=== PATIENT | female | born 1935 | race Caucasian/White ===

== ENCOUNTER 2019-04-13 19:12 | Inpatient (IN) ==
[2019-04-13 21:04] LABS: Hematocrit 36.2 % (35.3-44.9); Hemoglobin 12.2 g/dL (11.5-15.4); Mean Corpuscular HGB Conc 33.7 g/dL (31.6-35.5); Mean Corpuscular Hemoglobin 33.4 pg (28.0-33.3); Mean Corpuscular Volume 99.2 fL (83.0-100.0); Mean Platelet Volume 10.4 fL (9.4-12.4); Platelet Count 196 K/mcL (140-400); Red Blood Count 3.65 M/mcL (3.82-4.97); Red Cell Distribution Width 14.1 % (11.5-14.5); White Blood Count 5.1 K/mcL (4.3-11.1)
[2019-04-13 21:33] LABS: BUN/Creatinine Ratio 23 (6-26); Blood Urea Nitrogen 20 mg/dL (8-23); Calcium 8.9 mg/dL (8.6-10.3); Carbon Dioxide 28 mEq/L (23-29); Chloride 101 mEq/L (98-107); Glucose 116 mg/dL (70-105); Osmolality,Calculated 286 (280-300); Potassium 3.6 mEq/L (3.5-5.1); Sodium 136 mEq/L (136-145); eGFR For African Americans > 60 (> 60); eGFR For Non-African Americans > 60 (> 60)
[2019-04-14] MEDS ORDERED: Naloxone 0.4 MG/ML INJ IVP PRN (01:51)
[2019-04-14 02:09] LABS: Bilirubin,Urine Negative (Negative); Blood,Urine Negative (Negative); Clarity,Urine Cloudy (Clear); Color,Urine Yellow (Yellow); Glucose,Urine (UA) Normal (Normal); Ketones,Urine Negative (Negative); Leukocyte Esterase,Urine Moderate (Negative); Nitrite,Urine Negative (Negative); PH,Urine 7.5 pH Units (5.0-8.0); Protein,Urine Negative (Neg-Trace); Specific Gravity,Urine 1.013 (1.010-1.025); Urobilinogen,Urine Normal (Normal)
[2019-04-14 02:11] LABS: Bacteria,Urine Many per hpf (None-Few); Hyaline Casts,Urine None Seen per lpf (None-Few); Squamous Epithelial Cell,Urine Many per lpf (None-Few); WBC,Urine 50-100 per hpf (0-3)
[2019-04-14] MEDS: rOPINIRole 1 MG TABLET PO SCH ×2 (03:08→19:59)
[2019-04-14] MEDS ORDERED: Ibuprofen 800 MG TABLET PO PRN (03:48)
[2019-04-14 05:21] LABS: Hematocrit 33.1 % (35.3-44.9); Hemoglobin 11.4 g/dL (11.5-15.4); Mean Corpuscular HGB Conc 34.4 g/dL (31.6-35.5); Mean Corpuscular Hemoglobin 33.4 pg (28.0-33.3); Mean Corpuscular Volume 97.1 fL (83.0-100.0); Mean Platelet Volume 10.8 fL (9.4-12.4); Platelet Count 189 K/mcL (140-400); Red Blood Count 3.41 M/mcL (3.82-4.97)
[2019-04-14 05:32] LABS: White Blood Count 8.8 K/mcL (4.3-11.1)
[2019-04-14 05:38] LABS: Alanine Aminotransferase 18 Units/L (7-52); Albumin 4.1 g/dL (3.5-5.7); Alkaline Phosphatase 63 Units/L (34-104); Aspartate Amino Transferase 20 Units/L (13-39); BUN/Creatinine Ratio 22 (6-26); Bilirubin,Total 0.5 mg/dL (0.3-1.0); Blood Urea Nitrogen 15 mg/dL (8-23); Carbon Dioxide 26 mEq/L (23-29); Chloride 100 mEq/L (98-107); Globulin 2.1 g/dL (2.4-3.5); Glucose 96 mg/dL (70-105); Osmolality,Calculated 283 (280-300); Potassium 3.5 mEq/L (3.5-5.1); Sodium 136 mEq/L (136-145); Total Protein 6.2 g/dL (6.4-8.9); eGFR For African Americans > 60 (> 60); eGFR For Non-African Americans > 60 (> 60)
[2019-04-14 05:40] LABS: Phosphorous 3.5 mg/dL (2.7-4.5)
[2019-04-14] MEDS: predniSONE 10 MG TABLET PO SCH (08:54)
[2019-04-14] MEDS: cefTRIAXone 1,000 MG in Water for inj. (sterile) 10 ML IVP SCH (08:54)
[2019-04-14] MEDS: OXcarbazepine 150 MG TABLET PO SCH ×4 (10:40→19:59)
[2019-04-14] MEDS: amLODIPine 5 MG TABLET PO SCH (10:42)
[2019-04-14] MEDS: Melatonin 3 MG TABLET PO SCH (19:59)
[2019-04-14] MEDS: PROGESTERONE MICRONIZED 200 MG PO SCH (19:59)
[2019-04-15 07:44] LABS: Folate 14.3 ng/mL (3.0-16.0)
[2019-04-15] MEDS: predniSONE 10 MG TABLET PO SCH (11:06)
[2019-04-15] MEDS: cefTRIAXone 1,000 MG in Water for inj. (sterile) 10 ML IVP SCH (11:07)
[2019-04-15] MEDS: amLODIPine 5 MG TABLET PO SCH (11:16)
[2019-04-15] MEDS: OXcarbazepine 150 MG TABLET PO SCH ×4 (11:16→20:29)
[2019-04-15] MEDS: Metoprolol XL (24 HR) Succ 25 MG TAB.ER.24H PO SCH ×2 (13:47→13:52)
[2019-04-15] MEDS: Melatonin 3 MG TABLET PO SCH (20:28)
[2019-04-15] MEDS: rOPINIRole 1 MG TABLET PO SCH (20:29)
[2019-04-15] MEDS: PROGESTERONE MICRONIZED 200 MG PO SCH (20:31)
[2019-04-16 01:33] LABS: BUN/Creatinine Ratio 26 (6-26); Blood Urea Nitrogen 19 mg/dL (8-23); Calcium 9.1 mg/dL (8.6-10.3); Carbon Dioxide 24 mEq/L (23-29); Chloride 101 mEq/L (98-107); Glucose 92 mg/dL (70-105); Osmolality,Calculated 278 (280-300); Potassium 4.1 mEq/L (3.5-5.1); Sodium 133 mEq/L (136-145); eGFR For African Americans > 60 (> 60); eGFR For Non-African Americans > 60 (> 60)
[2019-04-16] MEDS: predniSONE 10 MG TABLET PO SCH (07:48)
[2019-04-16] MEDS: Metoprolol XL (24 HR) Succ 25 MG TAB.ER.24H PO SCH (07:48)
[2019-04-16] MEDS: OXcarbazepine 150 MG TABLET PO SCH ×2 (07:48→11:55)
[2019-04-16] MEDS: amLODIPine 5 MG TABLET PO SCH (07:48)
[2019-04-16] MEDS: cefTRIAXone 1,000 MG in Water for inj. (sterile) 10 ML IVP SCH (07:49)
[2019-04-16 10:45] LABS: Phenytoin (Dilantin) 1.1 mcg/mL (10.0-20.0)
[2019-04-16 11:12] VITALS: BP 154/71
[2019-04-18 02:45] LABS: Phenytoin (Dilantin) Free <0.5 ug/mL (1.0-2.5)
== END 2019-04-16 15:36 | disposition home or self-care (01) | DRG 92 ==
LOC: EMEROOARM 19:12 → 3BNU 19:12 → SUATTDRO 22:07 → 3BNU 22:20
PROVIDERS: ADMIT Internal Medicine; ATTEND Internal Medicine

== ENCOUNTER 2019-12-11 18:42 | Inpatient (IN) ==
[2019-12-11] MEDS ORDERED: Isovue-370 500 ML BOTTLE IVP ONE (19:41)
[2019-12-11 20:05] LABS: Alanine Aminotransferase 32 Units/L (7-52); Albumin 4.2 g/dL (3.5-5.7); Albumin/Globulin Ratio 1.8 (1.1-2.2); Alkaline Phosphatase 74 Units/L (34-104); Aspartate Amino Transferase 30 Units/L (13-39); BUN/Creatinine Ratio 22 (6-26); Bilirubin,Total 0.4 mg/dL (0.3-1.0); Blood Urea Nitrogen 19 mg/dL (8-23); Calcium 8.8 mg/dL (8.6-10.3); Carbon Dioxide 26 mEq/L (23-29); Chloride 97 mEq/L (98-107); Globulin 2.4 g/dL (2.4-3.5); Glucose 114 mg/dL (70-105); Osmolality,Calculated 279 (280-300); Potassium 3.5 mEq/L (3.5-5.1); Sodium 133 mEq/L (136-145); Total Protein 6.6 g/dL (6.4-8.9); Troponin I < 0.03 ng/mL (< 0.04); eGFR For African Americans > 60 (> 60); eGFR For Non-African Americans > 60 (> 60)
[2019-12-11 20:09] LABS: Bilirubin,Urine Negative (Negative); Blood,Urine Trace-intact (Negative); Clarity,Urine Cloudy (Clear); Color,Urine Yellow (Yellow); Glucose,Urine (UA) Normal (Normal); Ketones,Urine Negative (Negative); Leukocyte Esterase,Urine Small (Negative); Nitrite,Urine Negative (Negative); PH,Urine 7.5 pH Units (5.0-8.0); Protein,Urine >=300 mg/dL (Neg-Trace); Urobilinogen,Urine Normal (Normal)
[2019-12-11 20:13] LABS: Hemoglobin 12.2 g/dL (11.5-15.4); Immature Granulocytes % 0.5 % (0-4); Mean Corpuscular Hemoglobin 32.3 pg (28.0-33.3); Mean Corpuscular Volume 97.9 fL (83.0-100.0); Mean Platelet Volume 9.7 fL (9.4-12.4); Neutrophils # 4.7 K/mcL (1.6-8.9); Platelet Count 199 K/mcL (140-400); Red Blood Count 3.78 M/mcL (3.82-4.97); Red Cell Distribution Width 15.1 % (11.5-14.5); Segmented Neutrophils % 70.6 %; White Blood Count 6.6 K/mcL (4.3-11.1)
[2019-12-11 20:14] LABS: Basophils % 0.6 %; Eosinophils # 0.1 K/mcL (0.0-0.6); Eosinophils % 1.2 %; Lymphocytes % 15.3 %; Monocytes # 0.8 K/mcL (0.0-1.3); Monocytes % 11.8 %
[2019-12-11 20:48] LABS: Bacteria,Urine Many per hpf (None-Few); Squamous Epithelial Cell,Urine Few per lpf (None-Few)
[2019-12-11 20:49] LABS: WBC,Urine 15-30 per hpf (0-3)
[2019-12-11 20:50] LABS: Triple Phosphate Crystal,Urine Present
[2019-12-11] MEDS ORDERED: cefTRIAXone 1,000 MG in 0.9 % Sodium Chloride Mini Bag 100 ML IVPB ONE (21:47)
[2019-12-11] MEDS ORDERED: cefTRIAXone 1,000 MG in Water for inj. (sterile) 10 ML IVP ONE (22:15)
[2019-12-12] MEDS ORDERED: Acetaminophen 325 MG TABLET PO PRN (00:25)
[2019-12-12] MEDS ORDERED: *HR* Promethazine 25 MG/ML VIAL IVP PRN (00:25)
[2019-12-12] MEDS ORDERED: Naloxone 0.4 MG/ML INJ IVP PRN (00:25)
[2019-12-12] MEDS ORDERED: 0.9 % Sodium Chloride 1,000 ML IVC SCH (00:30)
[2019-12-12] MEDS ORDERED: *HR* Metoprolol 5 MG/5 ML VIAL IVP PRN (00:30)
[2019-12-12] MEDS ORDERED: rOPINIRole 1 MG TABLET PO ONE (04:21)
[2019-12-12] MEDS: *HR* Heparin 5,000 UNIT/ML VIAL SQ SCH ×3 (06:45→22:20)
[2019-12-12 07:15] LABS: Basophils % 0.4 %; Eosinophils % 0.4 %; Hematocrit 34.8 % (35.3-44.9); Hemoglobin 11.8 g/dL (11.5-15.4); Immature Granulocytes % 0.4 % (0-4); Lymphocytes # 0.6 K/mcL (0.6-4.6); Lymphocytes % 6.7 %; Mean Corpuscular HGB Conc 33.9 g/dL (31.6-35.5); Mean Corpuscular Hemoglobin 32.2 pg (28.0-33.3); Mean Corpuscular Volume 94.8 fL (83.0-100.0); Mean Platelet Volume 9.7 fL (9.4-12.4); Monocytes % 10.7 %; Neutrophils # 7.4 K/mcL (1.6-8.9); Platelet Count 194 K/mcL (140-400); Red Blood Count 3.67 M/mcL (3.82-4.97); Red Cell Distribution Width 14.7 % (11.5-14.5); Segmented Neutrophils % 81.4 %; White Blood Count 9.1 K/mcL (4.3-11.1)
[2019-12-12 07:24] LABS: Prothrombin Time 11.9 Seconds (9.4-12.1)
[2019-12-12 07:39] LABS: BUN/Creatinine Ratio 20 (6-26); Blood Urea Nitrogen 14 mg/dL (8-23); Calcium 8.7 mg/dL (8.6-10.3); Carbon Dioxide 24 mEq/L (23-29); Chloride 100 mEq/L (98-107); Glucose 99 mg/dL (70-105); Magnesium 1.8 mg/dL (1.6-2.6); Osmolality,Calculated 285 (280-300); Phosphorous 3.2 mg/dL (2.7-4.5); Potassium 2.8 mEq/L (3.5-5.1); Sodium 137 mEq/L (136-145); eGFR For African Americans > 60 (> 60); eGFR For Non-African Americans > 60 (> 60)
[2019-12-12 07:48] LABS: Thyroid Stimulating Hormone < 0.010 mcIU/mL (0.340-5.600)
[2019-12-12] MEDS ORDERED: *HR* Labetalol 20 MG/4 ML SYRINGE IVP PRN (07:53)
[2019-12-12] MEDS: Potassium Chloride Elixir 20 MEQ/15 ML UDC PO SCH ×2 (10:14→15:01)
[2019-12-12] MEDS: amLODIPine 5 MG TABLET PO SCH (10:15)
[2019-12-12] MEDS: cefTRIAXone 1,000 MG in 0.9 % Sodium Chloride Mini Bag 100 ML IVPB SCH (10:15)
[2019-12-12] MEDS: carvediloL 6.25 MG TABLET PO SCH ×2 (10:15→16:55)
[2019-12-12] MEDS: Cholecalciferol (D-3) 1,000 UNIT (25MCG) TABLET PO SCH (15:00)
[2019-12-12] MEDS ORDERED: Potassium Chloride Elixir 20 MEQ/15 ML UDC PO SCH (15:00)
[2019-12-12] MEDS: OXcarbazepine 150 MG TABLET PO SCH ×2 (16:55→22:19)
[2019-12-12] MEDS ORDERED: rOPINIRole 1 MG TABLET PO SCH (21:00)
[2019-12-13] MEDS: *HR* Heparin 5,000 UNIT/ML VIAL SQ SCH (06:37)
[2019-12-13 07:02] VITALS: BP 129/66
[2019-12-13] MEDS ORDERED: Cyanocobalamin (B-12) 1,000 MCG TABLET PO SCH (09:00)
[2019-12-13] MEDS ORDERED: PREDNISONE 2.5 MG PO SCH (09:00)
[2019-12-13] MEDS ORDERED: predniSONE 5 MG TABLET PO SCH (09:00)
[2019-12-13] MEDS ORDERED: Aspirin Enteric Coated 81 MG Tablet PO SCH (09:00)
[2019-12-13 09:09] LABS: BUN/Creatinine Ratio 22 (6-26); Blood Urea Nitrogen 19 mg/dL (8-23); Calcium 8.8 mg/dL (8.6-10.3); Carbon Dioxide 25 mEq/L (23-29); Chloride 106 mEq/L (98-107); Glucose 100 mg/dL (70-105); Magnesium 2.2 mg/dL (1.6-2.6); Osmolality,Calculated 290 (280-300); Potassium 3.8 mEq/L (3.5-5.1); Sodium 139 mEq/L (136-145); eGFR For African Americans > 60 (> 60); eGFR For Non-African Americans > 60 (> 60)
[2019-12-13] MEDS: Cholecalciferol (D-3) 1,000 UNIT (25MCG) TABLET PO SCH (09:47)
[2019-12-13] MEDS: OXcarbazepine 150 MG TABLET PO SCH (09:47)
[2019-12-13] MEDS: amLODIPine 5 MG TABLET PO SCH (09:47)
[2019-12-13] MEDS: carvediloL 6.25 MG TABLET PO SCH (09:47)
[2019-12-13] MEDS: cefTRIAXone 1,000 MG in 0.9 % Sodium Chloride Mini Bag 100 ML IVPB SCH (09:48)
== END 2019-12-13 11:21 | disposition home or self-care (01) | DRG 690 ==
LOC: EMEROOARM 18:42 → 3ANU 18:42 → SUATTDRO 22:28 → 3ANU 23:08
PROVIDERS: ADMIT Internal Medicine; ATTEND Internal Medicine

== ENCOUNTER 2019-12-26 19:51 | Inpatient (IN) ==
[2019-12-26 20:39] LABS: Basophils % 0.6 %; Eosinophils # 0.1 K/mcL (0.0-0.6); Eosinophils % 0.9 %; Hematocrit 36.5 % (35.3-44.9); Immature Granulocytes % 0.9 % (0-4); Lymphocytes # 0.8 K/mcL (0.6-4.6); Lymphocytes % 12.6 %; Mean Corpuscular HGB Conc 32.9 g/dL (31.6-35.5); Mean Corpuscular Hemoglobin 31.7 pg (28.0-33.3); Mean Corpuscular Volume 96.6 fL (83.0-100.0); Mean Platelet Volume 10.1 fL (9.4-12.4); Monocytes # 0.6 K/mcL (0.0-1.3); Monocytes % 9.3 %; Neutrophils # 4.8 K/mcL (1.6-8.9); Platelet Count 218 K/mcL (140-400); Red Blood Count 3.78 M/mcL (3.82-4.97); Red Cell Distribution Width 15.6 % (11.5-14.5); Segmented Neutrophils % 75.7 %; White Blood Count 6.4 K/mcL (4.3-11.1)
[2019-12-26 21:09] LABS: Alanine Aminotransferase 38 Units/L (7-52); Albumin/Globulin Ratio 1.7 (1.1-2.2); Alkaline Phosphatase 73 Units/L (34-104); Aspartate Amino Transferase 39 Units/L (13-39); BUN/Creatinine Ratio 19 (6-26); Bilirubin,Total 0.3 mg/dL (0.3-1.0); Blood Urea Nitrogen 18 mg/dL (8-23); Calcium 8.6 mg/dL (8.6-10.3); Carbon Dioxide 28 mEq/L (23-29); Chloride 98 mEq/L (98-107); Globulin 2.3 g/dL (2.4-3.5); Glucose 105 mg/dL (70-105); Magnesium 1.9 mg/dL (1.6-2.6); Osmolality,Calculated 284 (280-300); Potassium 3.9 mEq/L (3.5-5.1); Sodium 136 mEq/L (136-145); Total Protein 6.3 g/dL (6.4-8.9); Troponin I < 0.03 ng/mL (< 0.04); eGFR For African Americans > 60 (> 60); eGFR For Non-African Americans 54 (> 60)
[2019-12-27] MEDS ORDERED: *HR* Promethazine 25 MG/ML VIAL IVP PRN (01:21)
[2019-12-27] MEDS ORDERED: Acetaminophen 325 MG TABLET PO PRN (01:21)
[2019-12-27] MEDS ORDERED: Naloxone 0.4 MG/ML INJ IVP PRN (01:21)
[2019-12-27] MEDS ORDERED: 0.9 % Sodium Chloride 1,000 ML IVC SCH (01:30)
[2019-12-27 02:23] LABS: Hematocrit 41.1 % (35.3-44.9); Hemoglobin 13.2 g/dL (11.5-15.4); Mean Corpuscular HGB Conc 32.1 g/dL (31.6-35.5); Mean Corpuscular Volume 99.8 fL (83.0-100.0); Platelet Count 173 K/mcL (140-400); Red Blood Count 4.12 M/mcL (3.82-4.97); Red Cell Distribution Width 15.9 % (11.5-14.5); White Blood Count 8.1 K/mcL (4.3-11.1)
[2019-12-27 04:24] LABS: Bacteria,Urine Few per hpf (None-Few); Bilirubin,Urine Negative (Negative); Blood,Urine Negative (Negative); Clarity,Urine Clear (Clear); Color,Urine Light-Yellow (Yellow); Glucose,Urine (UA) Normal (Normal); Hyaline Casts,Urine Few per lpf (None Seen); Ketones,Urine Negative (Negative); Leukocyte Esterase,Urine Large (Negative); Nitrite,Urine Positive (Negative); PH,Urine 7.5 pH Units (5.0-8.0); Protein,Urine Trace mg/dL (Neg-Trace); RBC,Urine 0-3 per hpf (0-3); Specific Gravity,Urine 1.012 (1.010-1.025); Squamous Epithelial Cell,Urine Few per hpf (None-Few); Urobilinogen,Urine Normal (Normal)
[2019-12-27 06:52] LABS: BUN/Creatinine Ratio 18 (6-26); Blood Urea Nitrogen 14 mg/dL (8-23); Calcium 9.1 mg/dL (8.6-10.3); Carbon Dioxide 26 mEq/L (23-29); Chloride 100 mEq/L (98-107); Glucose 86 mg/dL (70-105); Magnesium 1.9 mg/dL (1.6-2.6); Osmolality,Calculated 284 (280-300); Phosphorous 2.8 mg/dL (2.7-4.5); Potassium 3.5 mEq/L (3.5-5.1); Sodium 137 mEq/L (136-145); eGFR For African Americans > 60 (> 60); eGFR For Non-African Americans > 60 (> 60)
[2019-12-27] MEDS: carvediloL 6.25 MG TABLET PO SCH ×2 (09:20→16:54)
[2019-12-27] MEDS: rOPINIRole 1 MG TABLET PO SCH ×2 (10:49→21:10)
[2019-12-27] MEDS ORDERED: PREDNISONE 2.5 MG PO SCH (14:00)
[2019-12-27] MEDS: OXcarbazepine 150 MG TABLET PO SCH ×3 (14:58→21:10)
[2019-12-27] MEDS: predniSONE 5 MG TABLET PO SCH (14:59)
[2019-12-27] MEDS: amLODIPine 5 MG TABLET PO SCH (14:59)
[2019-12-27] MEDS ORDERED: Perflutren Lipid Microsphere 1.3 ML in 0.9 % Sodium Chloride 8.7 ML IVP ONE (16:06)
[2019-12-27] MEDS ORDERED: Melatonin 3 MG TABLET PO SCH (21:00)
[2019-12-28] MEDS ORDERED: *HR* Enoxaparin 40 MG/0.4 ML SYRINGE SQ SCH (06:00)
[2019-12-28] MEDS: carvediloL 6.25 MG TABLET PO SCH (07:44)
[2019-12-28] MEDS: OXcarbazepine 150 MG TABLET PO SCH ×2 (07:50→13:02)
[2019-12-28] MEDS: predniSONE 5 MG TABLET PO SCH (07:50)
[2019-12-28] MEDS: amLODIPine 5 MG TABLET PO SCH (07:50)
[2019-12-28] MEDS ORDERED: Aspirin Enteric Coated 81 MG Tablet PO SCH (09:00)
[2019-12-28 11:13] VITALS: BP 128/64
== END 2019-12-28 13:45 | disposition home health service (06) | DRG 305 ==
LOC: 2ANU 19:51 → EMEROOARM 19:51 → 2ANU 12-27 00:55
PROVIDERS: ADMIT Internal Medicine; ATTEND Internal Medicine

== ENCOUNTER 2020-06-13 09:15 | Inpatient (IN) ==
[2020-06-13 10:27] LABS: INR 1.2
[2020-06-13 10:43] LABS: BUN/Creatinine Ratio 14 (6-26); Blood Urea Nitrogen 14 mg/dL (8-23); Calcium 8.5 mg/dL (8.6-10.3); Carbon Dioxide 30 mEq/L (23-29); Chloride 94 mEq/L (98-107); Glucose 88 mg/dL (70-105); Osmolality,Calculated 276 (280-300); Sodium 133 mEq/L (136-145); Troponin I 0.03 ng/mL (< 0.04); eGFR For African Americans > 60 (> 60); eGFR For Non-African Americans 53 (> 60)
[2020-06-13 10:44] LABS: Basophils # 0.1 K/mcL (0.0-0.2); Eosinophils # 0.1 K/mcL (0.0-0.6); Eosinophils % 2.5 %; Hematocrit 31.8 % (35.3-44.9); Hemoglobin 10.5 g/dL (11.5-15.4); Immature Granulocytes % 0.8 % (0-4); Immature Platelets 5.3 % (1.1-6.1); Lymphocytes # 0.7 K/mcL (0.6-4.6); Lymphocytes % 13.3 %; Mean Corpuscular Volume 102.9 fL (83.0-100.0); Mean Platelet Volume 10.5 fL (9.4-12.4); Monocytes # 0.5 K/mcL (0.0-1.3); Monocytes % 9.4 %; Neutrophils # 3.7 K/mcL (1.6-8.9); Platelet Count 129 K/mcL (140-400); Red Blood Count 3.09 M/mcL (3.82-4.97); Red Cell Distribution Width 15.6 % (11.5-14.5); White Blood Count 5.1 K/mcL (4.3-11.1)
[2020-06-13] MEDS ORDERED: Isovue-370 500 ML BOTTLE IVP ONE (11:20)
[2020-06-13] MEDS ORDERED: Potassium Chloride Elixir 20 MEQ/15 ML UDC PO ONE ×2 (12:42→15:55)
[2020-06-13] MEDS ORDERED: levoFLOXacin 750 MG/150 ML 750 MG/150 ML BAG IVPB ONE (14:19)
[2020-06-13 15:13] LABS: Adenovirus Not Detected (Not Detect); Bordetella Pertussis Not Detected (Not Detect); Chlamydophila pneumoniae Not Detected (Not Detect); Coronavirus 229E Not Detected (Not Detect); Coronavirus HKU1 Not Detected (Not Detect); Coronavirus NL63 Not Detected (Not Detect); Coronavirus OC43 Not Detected (Not Detect); Human Metapneumovirus Not Detected (Not Detect); Human Rhinovirus/Enterovirus Not Detected (Not Detect); Influenza A Subtype 2009 H1 Not Detected (Not Detect); Influenza B Not Detected (Not Detect); Mycoplasma pneumoniae Not Detected (Not Detect); Parainfluenza Virus 1 Not Detected (Not Detect); Parainfluenza Virus 2 Not Detected (Not Detect); Parainfluenza Virus 3 Not Detected (Not Detect); Parainfluenza Virus 4 Not Detected (Not Detect); Respiratory Syncytial Virus Not Detected (Not Detect); SARS-CoV-2 Not Detected (Not Detect)
[2020-06-13] MEDS ORDERED: *HR* Labetalol 20 MG/4 ML SYRINGE IVP ONE (15:41)
[2020-06-13] MEDS ORDERED: Nitroglycerin 0.4 MG TAB.SUBL SL PRN (15:51)
[2020-06-13] MEDS ORDERED: Naloxone 0.4 MG/ML INJ IVP PRN (15:56)
[2020-06-13 16:05] LABS: Bilirubin,Urine Negative (Negative); Blood,Urine Negative (Negative); Clarity,Urine Clear (Clear); Color,Urine Light-Yellow (Yellow); Glucose,Urine (UA) Normal (Normal); Ketones,Urine Negative (Negative); Leukocyte Esterase,Urine Negative (Negative); Nitrite,Urine Negative (Negative); PH,Urine 7.5 pH Units (5.0-8.0); Protein,Urine Trace mg/dL (Neg-Trace); Specific Gravity,Urine 1.011 (1.010-1.025); Urobilinogen,Urine Normal (Normal)
[2020-06-13] MEDS: cefTRIAXone 1,000 MG in Water for inj. (sterile) 10 ML IVP SCH (16:18)
[2020-06-13] MEDS ORDERED: *HR* Heparin 5,000 UNIT/ML VIAL IVP PRN ×2 (16:22)
[2020-06-13] MEDS ORDERED: *HR* Heparin 5,000 UNIT/ML VIAL IVP ONE (16:22)
[2020-06-13] MEDS ORDERED: Heparin 25,000UNIT/250ML 1/2NS 25,000 UNIT/250 ML IV.SOLN IVC SCH (16:30)
[2020-06-13] MEDS ORDERED: *HR* Metoprolol 5 MG/5 ML VIAL IVP ONE (17:11)
[2020-06-13] MEDS: Heparin 25,000UNIT/250ML 1/2NS 25,000 UNIT/250 ML IV.SOLN IVC SCH (19:04)
[2020-06-13] MEDS: Aspirin Enteric Coated 81 MG Tablet PO SCH (21:14)
[2020-06-13 21:32] LABS: INR 1.3; Prothrombin Time 15.4 Seconds (9.4-12.1)
[2020-06-13 21:35] LABS: Activated Partial Thrombo Time 44.9 Seconds (26.0-36.0)
[2020-06-13] MEDS: Furosemide 20 MG TABLET PO SCH (22:44)
[2020-06-13] MEDS: Melatonin 3 MG TABLET PO SCH (22:44)
[2020-06-13] MEDS: Acetaminophen 325 MG TABLET PO PRN (22:44)
[2020-06-14 02:13] LABS: Hematocrit 33.1 % (35.3-44.9); Hemoglobin 10.8 g/dL (11.5-15.4); Mean Corpuscular HGB Conc 32.6 g/dL (31.6-35.5); Mean Corpuscular Hemoglobin 33.6 pg (28.0-33.3); Mean Corpuscular Volume 103.1 fL (83.0-100.0); Mean Platelet Volume 10.7 fL (9.4-12.4); Platelet Count 159 K/mcL (140-400); Red Blood Count 3.21 M/mcL (3.82-4.97); Red Cell Distribution Width 15.7 % (11.5-14.5); White Blood Count 6.8 K/mcL (4.3-11.1)
[2020-06-14 02:33] LABS: Blood Urea Nitrogen 11 mg/dL (8-23); Carbon Dioxide 27 mEq/L (23-29); Chloride 99 mEq/L (98-107); Potassium 3.4 mEq/L (3.5-5.1); Sodium 138 mEq/L (136-145)
[2020-06-14 02:34] LABS: BUN/Creatinine Ratio 13 (6-26); Calcium 8.7 mg/dL (8.6-10.3); Chol/HDL Ratio 1.9 (0-4.9); Cholesterol 134 mg/dL (< 200); Glucose 82 mg/dL (70-105); HDL Cholesterol 70 mg/dL (40-59); LDL Cholesterol,Calculated 52 mg/dL (< 100); Osmolality,Calculated 284 (280-300); Triglycerides 60 mg/dL (< 150); eGFR For African Americans > 60 (> 60); eGFR For Non-African Americans > 60 (> 60)
[2020-06-14] MEDS: rOPINIRole 1 MG TABLET PO SCH ×2 (03:01→15:11)
[2020-06-14] MEDS: OXcarbazepine 150 MG TABLET PO SCH ×5 (03:01→20:50)
[2020-06-14] MEDS: carvediloL 6.25 MG TABLET PO SCH ×2 (04:44→20:57)
[2020-06-14] MEDS ORDERED: Regadenoson 0.4 MG/5 ML SYRINGE IVP ONE (07:11)
[2020-06-14 07:57] LABS: Estimated Average Glucose 114 mg/dl; Hemoglobin A1C 5.6 %
[2020-06-14] MEDS: Aspirin Enteric Coated 81 MG Tablet PO SCH (08:52)
[2020-06-14] MEDS: Furosemide 20 MG TABLET PO SCH ×2 (08:52→20:47)
[2020-06-14] MEDS ORDERED: Perflutren Lipid Microsphere 1.3 ML in 0.9 % Sodium Chloride 8.7 ML IVP PRN (08:58)
[2020-06-14] MEDS: Acetaminophen 325 MG TABLET PO PRN (14:46)
[2020-06-14] MEDS: cefTRIAXone 1,000 MG in Water for inj. (sterile) 10 ML IVP SCH (18:00)
[2020-06-14] MEDS: predniSONE 1 MG TABLET PO SCH (18:05)
[2020-06-14] MEDS: Melatonin 3 MG TABLET PO SCH (20:48)
[2020-06-14] MEDS ORDERED: rOPINIRole 1 MG TABLET PO SCH (21:00)
[2020-06-15] MEDS: Heparin 25,000UNIT/250ML 1/2NS 25,000 UNIT/250 ML IV.SOLN IVC SCH (00:24)
[2020-06-15 06:11] LABS: Basophils # 0.1 K/mcL (0.0-0.2); Basophils % 1.2 %; Eosinophils # 0.2 K/mcL (0.0-0.6); Eosinophils % 3.7 %; Hematocrit 35.6 % (35.3-44.9); Hemoglobin 12.1 g/dL (11.5-15.4); Immature Granulocytes % 0.5 % (0-4); Lymphocytes # 1.1 K/mcL (0.6-4.6); Lymphocytes % 19.4 %; Mean Corpuscular Hemoglobin 34.7 pg (28.0-33.3); Mean Platelet Volume 10.3 fL (9.4-12.4); Monocytes # 0.7 K/mcL (0.0-1.3); Monocytes % 12.3 %; Neutrophils # 3.7 K/mcL (1.6-8.9); Platelet Count 167 K/mcL (140-400); Red Blood Count 3.49 M/mcL (3.82-4.97); Red Cell Distribution Width 15.8 % (11.5-14.5); Segmented Neutrophils % 62.9 %; White Blood Count 5.9 K/mcL (4.3-11.1)
[2020-06-15 07:00] LABS: BUN/Creatinine Ratio 14 (6-26); Blood Urea Nitrogen 14 mg/dL (8-23); Calcium 9.1 mg/dL (8.6-10.3); Carbon Dioxide 27 mEq/L (23-29); Chloride 100 mEq/L (98-107); Glucose 95 mg/dL (70-105); Osmolality,Calculated 284 (280-300); Potassium 3.4 mEq/L (3.5-5.1); Sodium 137 mEq/L (136-145); eGFR For African Americans > 60 (> 60); eGFR For Non-African Americans 54 (> 60)
[2020-06-15 07:03] LABS: Troponin I 0.04 ng/mL (< 0.04)
[2020-06-15] MEDS: Vitamin E 200 UNIT (90MG) CAPSULE PO SCH (07:35)
[2020-06-15] MEDS: Ascorbic Acid 500 MG TABLET PO SCH (07:36)
[2020-06-15] MEDS: Cholecalciferol (D-3) 1,000 UNIT (25MCG) TABLET PO SCH (07:36)
[2020-06-15] MEDS: OXcarbazepine 150 MG TABLET PO SCH ×4 (07:36→20:54)
[2020-06-15] MEDS: Furosemide 20 MG TABLET PO SCH ×2 (07:36→20:54)
[2020-06-15] MEDS: Aspirin Enteric Coated 81 MG Tablet PO SCH (07:36)
[2020-06-15] MEDS: Cyanocobalamin (B-12) 1,000 MCG TABLET PO SCH (07:37)
[2020-06-15] MEDS: Vitamin B Complex/Vit C/Vit E 1 EACH TABLET PO SCH (07:37)
[2020-06-15] MEDS: predniSONE 5 MG TABLET PO SCH (07:37)
[2020-06-15] MEDS ORDERED: VITAMIN A 10000 UNIT PO SCH (09:00)
[2020-06-15] MEDS: predniSONE 1 MG TABLET PO SCH (16:25)
[2020-06-15] MEDS: cefTRIAXone 1,000 MG in Water for inj. (sterile) 10 ML IVP SCH (16:26)
[2020-06-15] MEDS: rOPINIRole 1 MG TABLET PO SCH (20:53)
[2020-06-15] MEDS: Melatonin 3 MG TABLET PO SCH (20:54)
[2020-06-15] MEDS: Apixaban 5 MG TABLET PO SCH ×2 (20:55→21:34)
[2020-06-16 00:55] LABS: Basophils # 0.1 K/mcL (0.0-0.2); Basophils % 0.7 %; Eosinophils # 0.2 K/mcL (0.0-0.6); Eosinophils % 3.6 %; Hematocrit 31.9 % (35.3-44.9); Hemoglobin 10.6 g/dL (11.5-15.4); Immature Granulocytes % 0.9 % (0-4); Lymphocytes % 14.2 %; Mean Corpuscular HGB Conc 33.2 g/dL (31.6-35.5); Mean Corpuscular Hemoglobin 34.4 pg (28.0-33.3); Mean Corpuscular Volume 103.6 fL (83.0-100.0); Mean Platelet Volume 10.4 fL (9.4-12.4); Monocytes # 0.8 K/mcL (0.0-1.3); Monocytes % 11.1 %; Neutrophils # 4.7 K/mcL (1.6-8.9); Platelet Count 153 K/mcL (140-400); Red Blood Count 3.08 M/mcL (3.82-4.97); Red Cell Distribution Width 15.9 % (11.5-14.5); Segmented Neutrophils % 69.5 %; White Blood Count 6.8 K/mcL (4.3-11.1)
[2020-06-16 01:17] LABS: BUN/Creatinine Ratio 19 (6-26); Blood Urea Nitrogen 18 mg/dL (8-23); Calcium 8.4 mg/dL (8.6-10.3); Carbon Dioxide 25 mEq/L (23-29); Chloride 100 mEq/L (98-107); Glucose 96 mg/dL (70-105); Osmolality,Calculated 278 (280-300); Potassium 4.1 mEq/L (3.5-5.1); Sodium 133 mEq/L (136-145); eGFR For African Americans > 60 (> 60); eGFR For Non-African Americans 57 (> 60)
[2020-06-16 02:37] LABS: Phenytoin (Dilantin) Free <0.5 ug/mL (1.0-2.5)
[2020-06-16] MEDS: Cyanocobalamin (B-12) 1,000 MCG TABLET PO SCH (07:34)
[2020-06-16] MEDS: OXcarbazepine 150 MG TABLET PO SCH (07:34)
[2020-06-16] MEDS: Vitamin B Complex/Vit C/Vit E 1 EACH TABLET PO SCH (07:34)
[2020-06-16] MEDS: Ascorbic Acid 500 MG TABLET PO SCH (07:34)
[2020-06-16] MEDS: predniSONE 5 MG TABLET PO SCH (07:34)
[2020-06-16] MEDS: Furosemide 20 MG TABLET PO SCH (07:34)
[2020-06-16] MEDS: Cholecalciferol (D-3) 1,000 UNIT (25MCG) TABLET PO SCH (07:34)
[2020-06-16] MEDS: Vitamin E 200 UNIT (90MG) CAPSULE PO SCH (07:34)
[2020-06-16] MEDS: Aspirin Enteric Coated 81 MG Tablet PO SCH (07:34)
[2020-06-16] MEDS: Apixaban 5 MG TABLET PO SCH (07:38)
[2020-06-16 11:42] VITALS: BP 176/97
== END 2020-06-16 15:12 | disposition home health service (06) | DRG 302 ==
LOC: 3ANU 09:15 → EMEROOARM 09:15 → SUATTDRO 16:09 → 3ANU 18:35
PROVIDERS: ADMIT Student in an Organized Health Care Education/Training Program; ATTEND Family Medicine

== ENCOUNTER 2020-09-07 12:00 | Inpatient (IN) ==
[2020-09-07 12:29] LABS: Hemoglobin 10.1 g/dL (11.5-15.4)
[2020-09-07 12:31] LABS: Basophils # 0.1 K/mcL (0.0-0.2); Basophils % 1.3 %; Eosinophils # 0.2 K/mcL (0.0-0.6); Hematocrit 30.5 % (35.3-44.9); Immature Granulocytes % 0.6 % (0-4); Immature Platelets 7.5 % (1.1-6.1); Lymphocytes # 0.7 K/mcL (0.6-4.6); Mean Corpuscular HGB Conc 33.1 g/dL (31.6-35.5); Mean Corpuscular Volume 96.5 fL (83.0-100.0); Mean Platelet Volume 11.5 fL (9.4-12.4); Monocytes # 0.6 K/mcL (0.0-1.3); Neutrophils # 3.5 K/mcL (1.6-8.9); Platelet Count 117 K/mcL (140-400); Red Blood Count 3.16 M/mcL (3.82-4.97); Segmented Neutrophils % 68.1 %; White Blood Count 5.2 K/mcL (4.3-11.1)
[2020-09-07 12:39] LABS: INR 1.6; Prothrombin Time 18.4 Seconds (9.4-12.1)
[2020-09-07 12:42] LABS: Activated Partial Thrombo Time 32.6 Seconds (26.0-36.0)
[2020-09-07 12:51] LABS: Alanine Aminotransferase 26 Units/L (7-52); Albumin 3.8 g/dL (3.5-5.7); Albumin/Globulin Ratio 1.4 (1.1-2.2); Alkaline Phosphatase 110 Units/L (34-104); Aspartate Amino Transferase 53 Units/L (13-39); BUN/Creatinine Ratio 22 (6-26); Bilirubin,Direct 0.2 mg/dL (0.0-0.2); Bilirubin,Indirect 0.5 mg/dL (0.0-1.0); Bilirubin,Total 0.7 mg/dL (0.3-1.0); Blood Urea Nitrogen 21 mg/dL (8-23); Calcium 8.7 mg/dL (8.6-10.3); Carbon Dioxide 29 mEq/L (23-29); Chloride 97 mEq/L (98-107); Globulin 2.7 g/dL (2.4-3.5); Glucose 84 mg/dL (70-105); Osmolality,Calculated 284 (280-300); Potassium 3.3 mEq/L (3.5-5.1); Sodium 136 mEq/L (136-145); Total Protein 6.5 g/dL (6.4-8.9); Troponin I < 0.03 ng/mL (< 0.04); eGFR For African Americans > 60 (> 60); eGFR For Non-African Americans 54 (> 60)
[2020-09-07] MEDS ORDERED: Azithromycin 500 MG in 0.9 % Sodium Chloride 250 ML IVPB ONE (13:21)
[2020-09-07] MEDS ORDERED: cefTRIAXone 1,000 MG in Water for inj. (sterile) 10 ML IVP ONE (13:21)
[2020-09-07 14:04] LABS: Bilirubin,Urine Negative (Negative); Blood,Urine Negative (Negative); Clarity,Urine Clear (Clear); Color,Urine Colorless (Yellow); Glucose,Urine (UA) Normal (Normal); Ketones,Urine Negative (Negative); Leukocyte Esterase,Urine Negative (Negative); Nitrite,Urine Negative (Negative); Protein,Urine Negative (Neg-Trace); Specific Gravity,Urine 1.008 (1.010-1.025); Urobilinogen,Urine Normal (Normal)
[2020-09-07] MEDS ORDERED: Ondansetron 4 MG/2 ML VIAL IVP PRN (14:16)
[2020-09-07] MEDS ORDERED: Naloxone 0.4 MG/ML INJ IVP PRN (14:16)
[2020-09-07 14:37] LABS: Magnesium 1.6 mg/dL (1.6-2.6)
[2020-09-07] MEDS: Furosemide 40 MG/4 ML VIAL IVP SCH ×2 (16:49→20:21)
[2020-09-07 17:30] LABS: % Iron Saturation 8 % (15-50); Iron 37 mcg/dL (50-170); Transferrin 315 mg/dL (203-362)
[2020-09-07 17:48] LABS: Ferritin 27 ng/mL (10-120)
[2020-09-07] MEDS: hydrALAZINE 25 MG TABLET PO SCH ×2 (17:58→23:31)
[2020-09-07] MEDS: rOPINIRole 1 MG TABLET PO SCH ×2 (17:58→20:21)
[2020-09-08] MEDS: Melatonin 3 MG TABLET PO PRN (03:00)
[2020-09-08 05:22] LABS: Hematocrit 28.3 % (35.3-44.9); Hemoglobin 9.5 g/dL (11.5-15.4); Mean Corpuscular HGB Conc 33.6 g/dL (31.6-35.5); Mean Corpuscular Hemoglobin 32.2 pg (28.0-33.3); Mean Corpuscular Volume 95.9 fL (83.0-100.0); Mean Platelet Volume 11.9 fL (9.4-12.4); Platelet Count 131 K/mcL (140-400); Red Blood Count 2.95 M/mcL (3.82-4.97); Red Cell Distribution Width 14.9 % (11.5-14.5); White Blood Count 5.3 K/mcL (4.3-11.1)
[2020-09-08 05:29] LABS: INR 1.5
[2020-09-08 05:43] LABS: BUN/Creatinine Ratio 19 (6-26); Blood Urea Nitrogen 18 mg/dL (8-23); Calcium 8.1 mg/dL (8.6-10.3); Carbon Dioxide 27 mEq/L (23-29); Chloride 98 mEq/L (98-107); Glucose 68 mg/dL (70-105); Osmolality,Calculated 282 (280-300); Sodium 136 mEq/L (136-145); eGFR For African Americans > 60 (> 60); eGFR For Non-African Americans 55 (> 60)
[2020-09-08] MEDS: Apixaban 5 MG TABLET PO SCH ×2 (08:58→21:27)
[2020-09-08] MEDS: hydrALAZINE 25 MG TABLET PO SCH ×2 (08:58→14:40)
[2020-09-08] MEDS ORDERED: cefTRIAXone 2,000 MG in Water for inj. (sterile) 20 ML IVP SCH (09:00)
[2020-09-08] MEDS ORDERED: Azithromycin 250 MG TABLET PO SCH (09:00)
[2020-09-08] MEDS ORDERED: Iron Sucrose Complex 400 MG in 0.9 % Sodium Chloride 250 ML IVPB ONE (09:45)
[2020-09-08] MEDS: rOPINIRole 1 MG TABLET PO SCH ×2 (11:35→21:27)
[2020-09-08] MEDS ORDERED: Furosemide 40 MG/4 ML VIAL IVP ONE (15:00)
[2020-09-08] MEDS: DiphenhydraMINE CREAM 28.4 GM TUBE TP PRN (15:31)
[2020-09-08] MEDS: OXcarbazepine 150 MG TABLET PO SCH (16:35)
[2020-09-09] MEDS: hydrALAZINE 25 MG TABLET PO SCH (00:28)
[2020-09-09] MEDS: DiphenhydraMINE CREAM 28.4 GM TUBE TP PRN ×2 (00:30→21:30)
[2020-09-09 06:03] LABS: Hematocrit 30.2 % (35.3-44.9); Hemoglobin 9.9 g/dL (11.5-15.4); Mean Corpuscular HGB Conc 32.8 g/dL (31.6-35.5); Mean Corpuscular Hemoglobin 31.7 pg (28.0-33.3); Mean Corpuscular Volume 96.8 fL (83.0-100.0); Mean Platelet Volume 11.4 fL (9.4-12.4); Platelet Count 132 K/mcL (140-400); Red Blood Count 3.12 M/mcL (3.82-4.97); Red Cell Distribution Width 15.4 % (11.5-14.5); White Blood Count 4.3 K/mcL (4.3-11.1)
[2020-09-09 06:34] LABS: Calcium 8.3 mg/dL (8.6-10.3); Potassium 4.7 mEq/L (3.5-5.1)
[2020-09-09] MEDS: Iron Sucrose Complex 250 MG in 0.9 % Sodium Chloride 250 ML IVPB SCH (09:01)
[2020-09-09] MEDS: Furosemide 40 MG/4 ML VIAL IVP SCH ×2 (09:01→21:23)
[2020-09-09] MEDS: OXcarbazepine 150 MG TABLET PO SCH ×2 (09:02→18:34)
[2020-09-09] MEDS: carvediloL 25 MG TABLET PO SCH ×2 (09:02→18:33)
[2020-09-09] MEDS: rOPINIRole 1 MG TABLET PO SCH ×2 (09:02→21:22)
[2020-09-09] MEDS: amLODIPine 5 MG TABLET PO SCH (09:02)
[2020-09-09] MEDS: predniSONE 5 MG TABLET PO SCH (09:03)
[2020-09-09] MEDS: Apixaban 5 MG TABLET PO SCH ×2 (09:03→21:23)
[2020-09-09] MEDS: Acetaminophen 325 MG TABLET PO PRN (12:04)
[2020-09-10] MEDS: Acetaminophen 325 MG TABLET PO PRN ×3 (01:13→21:36)
[2020-09-10] MEDS: Melatonin 3 MG TABLET PO PRN ×2 (01:14→21:37)
[2020-09-10] MEDS: DiphenhydraMINE CREAM 28.4 GM TUBE TP PRN ×2 (03:48→21:33)
[2020-09-10] MEDS ORDERED: rOPINIRole 1 MG TABLET PO ONE (04:03)
[2020-09-10 05:48] LABS: Calcium 8.5 mg/dL (8.6-10.3); Magnesium 1.9 mg/dL (1.6-2.6); Potassium 3.8 mEq/L (3.5-5.1)
[2020-09-10] MEDS: Furosemide 40 MG/4 ML VIAL IVP SCH ×2 (08:48→21:27)
[2020-09-10] MEDS: rOPINIRole 1 MG TABLET PO SCH ×2 (08:49→21:27)
[2020-09-10] MEDS: amLODIPine 5 MG TABLET PO SCH (08:49)
[2020-09-10] MEDS: carvediloL 25 MG TABLET PO SCH ×2 (08:49→18:06)
[2020-09-10] MEDS: OXcarbazepine 150 MG TABLET PO SCH ×2 (08:50→18:06)
[2020-09-10] MEDS: predniSONE 5 MG TABLET PO SCH (08:50)
[2020-09-10] MEDS: Apixaban 5 MG TABLET PO SCH ×2 (08:51→21:27)
[2020-09-10] MEDS: Iron Sucrose Complex 250 MG in 0.9 % Sodium Chloride 250 ML IVPB SCH (08:51)
[2020-09-11 07:42] LABS: BUN/Creatinine Ratio 14 (6-26); Blood Urea Nitrogen 15 mg/dL (8-23); Calcium 8.6 mg/dL (8.6-10.3); Carbon Dioxide 29 mEq/L (23-29); Chloride 96 mEq/L (98-107); Glucose 78 mg/dL (70-105); Magnesium 1.7 mg/dL (1.6-2.6); Osmolality,Calculated 274 (280-300); Potassium 3.2 mEq/L (3.5-5.1); Sodium 132 mEq/L (136-145); eGFR For African Americans > 60 (> 60); eGFR For Non-African Americans 50 (> 60)
[2020-09-11] MEDS: amLODIPine 5 MG TABLET PO SCH (07:57)
[2020-09-11] MEDS: OXcarbazepine 150 MG TABLET PO SCH ×2 (07:57→18:05)
[2020-09-11] MEDS: Furosemide 40 MG/4 ML VIAL IVP SCH (07:58)
[2020-09-11] MEDS: carvediloL 25 MG TABLET PO SCH (07:58)
[2020-09-11] MEDS: predniSONE 5 MG TABLET PO SCH (07:58)
[2020-09-11] MEDS: rOPINIRole 1 MG TABLET PO SCH ×2 (07:58→20:00)
[2020-09-11] MEDS: Apixaban 5 MG TABLET PO SCH ×2 (07:58→20:00)
[2020-09-11] MEDS ORDERED: 0.9 % Sodium Chloride 1,000 ML IVC ONE (09:19)
[2020-09-11 10:10] LABS: Basophils # 0.1 K/mcL (0.0-0.2); Basophils % 1.2 %; Eosinophils # 0.3 K/mcL (0.0-0.6); Eosinophils % 5.7 %; Hematocrit 29.1 % (35.3-44.9); Hemoglobin 9.7 g/dL (11.5-15.4); Immature Granulocytes % 1.4 % (0-4); Lymphocytes # 0.7 K/mcL (0.6-4.6); Lymphocytes % 14.8 %; Mean Corpuscular HGB Conc 33.3 g/dL (31.6-35.5); Mean Platelet Volume 11.3 fL (9.4-12.4); Monocytes # 0.5 K/mcL (0.0-1.3); Monocytes % 9.7 %; Neutrophils # 3.3 K/mcL (1.6-8.9); Platelet Count 121 K/mcL (140-400); Red Blood Count 3.03 M/mcL (3.82-4.97); Red Cell Distribution Width 14.8 % (11.5-14.5); Segmented Neutrophils % 67.2 %; White Blood Count 4.9 K/mcL (4.3-11.1)
[2020-09-11] MEDS ORDERED: *HR* Atropine Sulfate 1 MG/10 ML SYRINGE IV ONE (16:20)
[2020-09-11] MEDS: Acetaminophen 325 MG TABLET PO PRN (19:59)
[2020-09-11] MEDS: Melatonin 3 MG TABLET PO PRN (20:00)
[2020-09-12] MEDS: DiphenhydraMINE CREAM 28.4 GM TUBE TP PRN (00:18)
[2020-09-12 04:44] LABS: Eosinophils % 5.6 %
[2020-09-12 04:46] LABS: Basophils # 0.1 K/mcL (0.0-0.2); Basophils % 1.5 %; Eosinophils # 0.3 K/mcL (0.0-0.6); Hematocrit 31.6 % (35.3-44.9); Hemoglobin 10.4 g/dL (11.5-15.4); Immature Granulocytes % 1.3 % (0-4); Immature Platelets 7.7 % (1.1-6.1); Lymphocytes # 0.8 K/mcL (0.6-4.6); Lymphocytes % 14.4 %; Mean Corpuscular HGB Conc 32.9 g/dL (31.6-35.5); Mean Corpuscular Hemoglobin 31.7 pg (28.0-33.3); Mean Corpuscular Volume 96.3 fL (83.0-100.0); Mean Platelet Volume 11.3 fL (9.4-12.4); Monocytes # 0.5 K/mcL (0.0-1.3); Monocytes % 9.5 %; Neutrophils # 3.7 K/mcL (1.6-8.9); Platelet Count 120 K/mcL (140-400); Red Blood Count 3.28 M/mcL (3.82-4.97); Red Cell Distribution Width 14.8 % (11.5-14.5); Segmented Neutrophils % 67.7 %; White Blood Count 5.5 K/mcL (4.3-11.1)
[2020-09-12 05:18] LABS: BUN/Creatinine Ratio 17 (6-26); Blood Urea Nitrogen 17 mg/dL (8-23); Carbon Dioxide 28 mEq/L (23-29); Chloride 95 mEq/L (98-107); Glucose 76 mg/dL (70-105); Magnesium 1.8 mg/dL (1.6-2.6); Osmolality,Calculated 270 (280-300); Potassium 3.6 mEq/L (3.5-5.1); Sodium 130 mEq/L (136-145); eGFR For African Americans > 60 (> 60); eGFR For Non-African Americans 53 (> 60)
[2020-09-12] MEDS: Acetaminophen 325 MG TABLET PO PRN (05:39)
[2020-09-12] MEDS: Apixaban 5 MG TABLET PO SCH ×2 (08:15→21:09)
[2020-09-12] MEDS: rOPINIRole 1 MG TABLET PO SCH ×2 (08:15→21:09)
[2020-09-12] MEDS: predniSONE 5 MG TABLET PO SCH (08:16)
[2020-09-12] MEDS: OXcarbazepine 150 MG TABLET PO SCH ×2 (08:17→17:08)
[2020-09-12] MEDS ORDERED: Naloxone 0.4 MG/ML INJ IVP PRN (11:45)
[2020-09-12] MEDS ORDERED: Acetaminophen 325 MG TABLET PO PRN (11:45)
[2020-09-12] MEDS ORDERED: DiphenhydraMINE CREAM 28.4 GM TUBE TP PRN (11:45)
[2020-09-12] MEDS ORDERED: Melatonin 3 MG TABLET PO PRN (11:45)
[2020-09-12] MEDS ORDERED: Ondansetron 4 MG/2 ML VIAL IVP PRN (11:45)
[2020-09-12] MEDS ORDERED: Apixaban 5 MG TABLET PO SCH (21:00)
[2020-09-12] MEDS: Furosemide 40 MG/4 ML VIAL IVP SCH (21:08)
[2020-09-13 04:53] LABS: BUN/Creatinine Ratio 16 (6-26); Blood Urea Nitrogen 16 mg/dL (8-23); Calcium 8.9 mg/dL (8.6-10.3); Carbon Dioxide 31 mEq/L (23-29); Chloride 96 mEq/L (98-107); Glucose 80 mg/dL (70-105); Osmolality,Calculated 278 (280-300); Potassium 3.7 mEq/L (3.5-5.1); Sodium 134 mEq/L (136-145); eGFR For African Americans > 60 (> 60); eGFR For Non-African Americans 54 (> 60)
[2020-09-13] MEDS: OXcarbazepine 150 MG TABLET PO SCH ×2 (08:09→17:33)
[2020-09-13] MEDS: predniSONE 5 MG TABLET PO SCH (08:10)
[2020-09-13] MEDS: Apixaban 5 MG TABLET PO SCH ×2 (08:10→19:59)
[2020-09-13] MEDS: rOPINIRole 1 MG TABLET PO SCH ×2 (08:10→19:59)
[2020-09-13] MEDS: Furosemide 40 MG/4 ML VIAL IVP SCH ×2 (08:11→20:00)
[2020-09-14 03:04] LABS: Basophils # 0.1 K/mcL (0.0-0.2); Basophils % 1.2 %; Eosinophils # 0.3 K/mcL (0.0-0.6); Eosinophils % 5.9 %; Hematocrit 29.2 % (35.3-44.9); Hemoglobin 9.5 g/dL (11.5-15.4); Immature Granulocytes % 1.6 % (0-4); Immature Platelets 7.1 % (1.1-6.1); Lymphocytes # 0.9 K/mcL (0.6-4.6); Lymphocytes % 16.2 %; Mean Corpuscular HGB Conc 32.5 g/dL (31.6-35.5); Mean Corpuscular Hemoglobin 31.6 pg (28.0-33.3); Mean Platelet Volume 11.5 fL (9.4-12.4); Monocytes # 0.8 K/mcL (0.0-1.3); Monocytes % 13.5 %; Neutrophils # 3.5 K/mcL (1.6-8.9); Nucleated Red Blood Cells 0.4 /100 WBC (0); Platelet Count 113 K/mcL (140-400); Red Blood Count 3.01 M/mcL (3.82-4.97); Red Cell Distribution Width 15.2 % (11.5-14.5); Segmented Neutrophils % 61.6 %; White Blood Count 5.6 K/mcL (4.3-11.1)
[2020-09-14 03:15] LABS: Calcium 9.1 mg/dL (8.6-10.3); Potassium 4.2 mEq/L (3.5-5.1)
[2020-09-14] MEDS ORDERED: Furosemide 40 MG/4 ML VIAL IVP SCH (09:00)
[2020-09-14] MEDS: predniSONE 5 MG TABLET PO SCH (09:12)
[2020-09-14] MEDS: rOPINIRole 1 MG TABLET PO SCH ×2 (09:12→20:37)
[2020-09-14] MEDS: OXcarbazepine 150 MG TABLET PO SCH ×2 (09:12→17:13)
[2020-09-14] MEDS: Apixaban 5 MG TABLET PO SCH ×2 (09:13→20:37)
[2020-09-14] MEDS: Furosemide 20 MG TABLET PO SCH ×2 (11:37→17:13)
[2020-09-15 03:23] LABS: BUN/Creatinine Ratio 20 (6-26); Blood Urea Nitrogen 20 mg/dL (8-23); Calcium 8.8 mg/dL (8.6-10.3); Carbon Dioxide 30 mEq/L (23-29); Chloride 95 mEq/L (98-107); Glucose 83 mg/dL (70-105); Osmolality,Calculated 278 (280-300); Potassium 4.1 mEq/L (3.5-5.1); Sodium 133 mEq/L (136-145); eGFR For African Americans > 60 (> 60); eGFR For Non-African Americans 52 (> 60)
[2020-09-15] MEDS: Apixaban 5 MG TABLET PO SCH ×2 (07:52→20:14)
[2020-09-15] MEDS: OXcarbazepine 150 MG TABLET PO SCH ×2 (07:52→17:59)
[2020-09-15] MEDS: rOPINIRole 1 MG TABLET PO SCH ×2 (07:52→20:13)
[2020-09-15] MEDS: predniSONE 5 MG TABLET PO SCH (07:53)
[2020-09-15] MEDS: Furosemide 20 MG TABLET PO SCH ×2 (07:53→17:59)
[2020-09-16 04:43] LABS: Basophils # 0.1 K/mcL (0.0-0.2); Basophils % 1.3 %; Eosinophils # 0.2 K/mcL (0.0-0.6); Eosinophils % 3.7 %; Hematocrit 29.5 % (35.3-44.9); Hemoglobin 9.7 g/dL (11.5-15.4); Immature Granulocytes % 1.3 % (0-4); Immature Platelets 6.5 % (1.1-6.1); Lymphocytes % 15.9 %; Mean Corpuscular HGB Conc 32.9 g/dL (31.6-35.5); Mean Corpuscular Hemoglobin 31.7 pg (28.0-33.3); Mean Corpuscular Volume 96.4 fL (83.0-100.0); Mean Platelet Volume 11.7 fL (9.4-12.4); Monocytes # 0.7 K/mcL (0.0-1.3); Monocytes % 11.7 %; Neutrophils # 4.1 K/mcL (1.6-8.9); Platelet Count 110 K/mcL (140-400); Red Blood Count 3.06 M/mcL (3.82-4.97); Red Cell Distribution Width 16.1 % (11.5-14.5); Segmented Neutrophils % 66.1 %; White Blood Count 6.2 K/mcL (4.3-11.1)
[2020-09-16 04:50] LABS: Estimated Average Glucose 111 mg/dl; Hemoglobin A1C 5.5 %
[2020-09-16 04:58] LABS: BUN/Creatinine Ratio 24 (6-26); Blood Urea Nitrogen 19 mg/dL (8-23); Calcium 7.5 mg/dL (8.6-10.3); Carbon Dioxide 25 mEq/L (23-29); Chloride 105 mEq/L (98-107); Glucose 72 mg/dL (70-105); Magnesium 1.6 mg/dL (1.6-2.6); Osmolality,Calculated 283 (280-300); Potassium 4.4 mEq/L (3.5-5.1); Sodium 136 mEq/L (136-145); eGFR For African Americans > 60 (> 60); eGFR For Non-African Americans > 60 (> 60)
[2020-09-16] MEDS: rOPINIRole 1 MG TABLET PO SCH (08:43)
[2020-09-16] MEDS: Apixaban 5 MG TABLET PO SCH (08:43)
[2020-09-16] MEDS: predniSONE 5 MG TABLET PO SCH (08:43)
[2020-09-16] MEDS: Furosemide 20 MG TABLET PO SCH (08:44)
[2020-09-16] MEDS: OXcarbazepine 150 MG TABLET PO SCH (08:44)
[2020-09-16 10:02] LABS: Influenza A PCR Negative (Negative); Influenza B PCR Negative (Negative); Resp. Syncytial Virus PCR Negative (Negative)
[2020-09-16 10:36] LABS: SARS-CoV-2 by PCR (In House) Negative (Negative)
[2020-09-16 11:11] VITALS: BP 171/69
== END 2020-09-16 14:32 | DRG 291 ==
LOC: 3ANU 12:00 → EMEROOARM 12:00 → SUATTDRO 16:34 → 3ANU 17:32 → SUATTDRO 09-08 15:50 → ICNU 09-11 11:00 → 2ANU 09-12 12:35
PROVIDERS: ADMIT Family Medicine; ATTEND Internal Medicine

== ENCOUNTER 2020-10-20 15:52 | Inpatient (IN) ==
[2020-10-20 16:36] LABS: Hemoglobin 11.3 g/dL (11.5-15.4); Mean Corpuscular HGB Conc 32.8 g/dL (31.6-35.5); Mean Corpuscular Volume 101.8 fL (83.0-100.0); Monocytes % 7.1 %
[2020-10-20 16:38] LABS: Basophils % 0.9 %; Eosinophils % 0.7 %; Hematocrit 34.5 % (35.3-44.9); Immature Granulocytes % 1.1 % (0-4); Immature Platelets 11.3 % (1.1-6.1); Lymphocytes # 0.5 K/mcL (0.6-4.6); Lymphocytes % 11.9 %; Mean Corpuscular Hemoglobin 33.3 pg (28.0-33.3); Mean Platelet Volume 13.3 fL (9.4-12.4); Monocytes # 0.3 K/mcL (0.0-1.3); Neutrophils # 3.5 K/mcL (1.6-8.9); Nucleated Red Blood Cells 0.4 /100 WBC (0); Red Blood Count 3.39 M/mcL (3.82-4.97); Red Cell Distribution Width 21.2 % (11.5-14.5); Segmented Neutrophils % 78.3 %; White Blood Count 4.5 K/mcL (4.3-11.1)
[2020-10-20 16:45] LABS: INR 1.9; Prothrombin Time 21.9 Seconds (9.4-12.1)
[2020-10-20 16:48] LABS: Activated Partial Thrombo Time 38.4 Seconds (26.0-36.0)
[2020-10-20 17:00] LABS: Bilirubin,Urine Negative (Negative); Blood,Urine Negative (Negative); Clarity,Urine Clear (Clear); Color,Urine Yellow (Yellow); Glucose,Urine (UA) Normal (Normal); Ketones,Urine Negative (Negative); Leukocyte Esterase,Urine Negative (Negative); Nitrite,Urine Negative (Negative); PH,Urine 5.5 pH Units (5.0-8.0); Protein,Urine Trace mg/dL (Neg-Trace); Specific Gravity,Urine 1.016 (1.010-1.025); Urobilinogen,Urine Normal (Normal)
[2020-10-20 17:04] LABS: ABG Base Excess 2 mEq/L (-2 to 3); ABG HCO3 27 mEq/L (21-27); ABG Oxygen Saturation 95 % (95-98); ABG PCO2 42 mmHg (35-45); ABG PH 7.42 pH Units (7.32-7.45); ABG PO2 77 mmHg (85-104); ABG TCO2 28 mEq/L (20-26)
[2020-10-20 17:04] LABS: Amphetamine Screen,Urine Negative ng/mL (Cutoff=1000); Barbiturate Screen,Urine Negative ng/mL (Cutoff=200); Benzodiazepines Screen,Urine Negative ng/mL (Cutoff=200); Cannabinoid Screen,Urine Negative ng/mL (Cutoff = 50); Cocaine Screen,Urine Negative ng/mL (Cutoff= 300); Opiate Screen,Urine Negative ng/mL (Cutoff=300); Phencyclidine Screen,Urine Negative ng/mL (Cutoff=25)
[2020-10-20 17:12] LABS: Platelet Count 66 K/mcL (140-400)
[2020-10-20 17:21] LABS: Alanine Aminotransferase 30 Units/L (7-52); Albumin 4.4 g/dL (3.5-5.7); Albumin/Globulin Ratio 1.6 (1.1-2.2); Alkaline Phosphatase 182 Units/L (34-104); Aspartate Amino Transferase 58 Units/L (13-39); BUN/Creatinine Ratio 26 (6-26); Bilirubin,Direct 0.4 mg/dL (0.0-0.2); Bilirubin,Indirect 0.8 mg/dL (0.0-1.0); Bilirubin,Total 1.2 mg/dL (0.3-1.0); Blood Urea Nitrogen 25 mg/dL (8-23); Calcium 9.4 mg/dL (8.6-10.3); Carbon Dioxide 26 mEq/L (23-29); Chloride 99 mEq/L (98-107); Creatine Kinase 253 Units/L (30-223); Ethanol < 10 mg/dL (Less than 10); Globulin 2.8 g/dL (2.4-3.5); Glucose 107 mg/dL (70-105); Osmolality,Calculated 287 (280-300); Sodium 136 mEq/L (136-145); Thyroid Stimulating Hormone 0.071 mcIU/mL (0.340-5.600); Total Protein 7.2 g/dL (6.4-8.9); Troponin I 0.03 ng/mL (< 0.04); eGFR For African Americans > 60 (> 60); eGFR For Non-African Americans 54 (> 60)
[2020-10-20] MEDS ORDERED: Furosemide 40 MG/4 ML VIAL IVP ONE (17:23)
[2020-10-20] MEDS ORDERED: Haloperidol Lactate 5 MG/ML VIAL IVP ONE (19:17)
[2020-10-20] MEDS ORDERED: Ondansetron 4 MG/2 ML VIAL IVP PRN (20:09)
[2020-10-20] MEDS ORDERED: Melatonin 3 MG TABLET PO PRN (20:09)
[2020-10-20] MEDS ORDERED: Naloxone 0.4 MG/ML INJ IVP PRN (20:09)
[2020-10-20] MEDS ORDERED: rOPINIRole 1 MG TABLET PO ONE (20:38)
[2020-10-21 02:42] LABS: Mean Corpuscular Volume 99.7 fL (83.0-100.0); Red Cell Distribution Width 21.2 % (11.5-14.5)
[2020-10-21 02:44] LABS: Hematocrit 30.8 % (35.3-44.9); Hemoglobin 10.4 g/dL (11.5-15.4); Immature Platelets 13.5 % (1.1-6.1); Mean Corpuscular HGB Conc 33.8 g/dL (31.6-35.5); Mean Corpuscular Hemoglobin 33.7 pg (28.0-33.3); Mean Platelet Volume 13.2 fL (9.4-12.4); Red Blood Count 3.09 M/mcL (3.82-4.97)
[2020-10-21 03:02] LABS: BUN/Creatinine Ratio 26 (6-26); Blood Urea Nitrogen 27 mg/dL (8-23); Calcium 8.8 mg/dL (8.6-10.3); Carbon Dioxide 21 mEq/L (23-29); Chloride 99 mEq/L (98-107); Glucose 41 mg/dL (70-105); Osmolality,Calculated 284 (280-300); Potassium 4.3 mEq/L (3.5-5.1); Sodium 136 mEq/L (136-145); eGFR For African Americans > 60 (> 60); eGFR For Non-African Americans 51 (> 60)
[2020-10-21] MEDS: Furosemide 40 MG/4 ML VIAL IVP SCH ×2 (08:21→21:51)
[2020-10-21 12:51] LABS: Triiodothyronine (T3) Free 2.05 pg/mL (2.50-3.90)
[2020-10-21] MEDS: Acetaminophen 325 MG TABLET PO PRN ×2 (14:23→21:51)
[2020-10-21] MEDS: Doxycycline 100 MG in 0.9 % Sodium Chloride Mini Bag 100 ML IVPB SCH (17:44)
[2020-10-21] MEDS ORDERED: cephALEXin 500 MG CAPSULE PO SCH (21:00)
[2020-10-21] MEDS: metOLazone 5 MG TABLET PO SCH (21:56)
[2020-10-21] MEDS: rOPINIRole 1 MG TABLET PO SCH (22:59)
[2020-10-22] MEDS ORDERED: Haloperidol Lactate 5 MG/ML VIAL IVP ONE (04:16)
[2020-10-22] MEDS: Doxycycline 100 MG in 0.9 % Sodium Chloride Mini Bag 100 ML IVPB SCH ×2 (04:46→18:10)
[2020-10-22] MEDS: predniSONE 5 MG TABLET PO SCH (08:48)
[2020-10-22] MEDS: Magnesium Oxide 400 MG TABLET PO SCH (08:48)
[2020-10-22] MEDS: rOPINIRole 1 MG TABLET PO SCH ×2 (08:48→19:52)
[2020-10-22] MEDS: Cholecalciferol (D-3) 1,000 UNIT (25MCG) TABLET PO SCH (08:48)
[2020-10-22] MEDS: Cyanocobalamin (B-12) 1,000 MCG TABLET PO SCH (08:48)
[2020-10-22] MEDS: Acetaminophen 325 MG TABLET PO PRN ×2 (08:49→18:10)
[2020-10-22] MEDS: Furosemide 40 MG/4 ML VIAL IVP SCH ×2 (08:49→19:53)
[2020-10-22 08:56] LABS: Basophils # 0.1 K/mcL (0.0-0.2); Basophils % 1.2 %; Eosinophils # 0.2 K/mcL (0.0-0.6); Eosinophils % 3.8 %; Hematocrit 31.4 % (35.3-44.9); Hemoglobin 10.6 g/dL (11.5-15.4); Immature Granulocytes % 0.6 % (0-4); Lymphocytes # 0.9 K/mcL (0.6-4.6); Lymphocytes % 18.1 %; Mean Corpuscular HGB Conc 33.8 g/dL (31.6-35.5); Mean Corpuscular Hemoglobin 33.1 pg (28.0-33.3); Mean Corpuscular Volume 98.1 fL (83.0-100.0); Mean Platelet Volume 12.7 fL (9.4-12.4); Monocytes # 0.7 K/mcL (0.0-1.3); Monocytes % 13.5 %; Neutrophils # 3.1 K/mcL (1.6-8.9); Red Cell Distribution Width 21.2 % (11.5-14.5); Segmented Neutrophils % 62.8 %
[2020-10-22 08:57] LABS: Platelet Count 95 K/mcL (140-400)
[2020-10-22 09:15] LABS: Albumin 3.7 g/dL (3.5-5.7); Albumin/Globulin Ratio 1.5 (1.1-2.2); Bilirubin,Total 1.5 mg/dL (0.3-1.0); Calcium 9.1 mg/dL (8.6-10.3); Globulin 2.4 g/dL (2.4-3.5); Potassium 3.8 mEq/L (3.5-5.1); Total Protein 6.1 g/dL (6.4-8.9)
[2020-10-22] MEDS: metOLazone 5 MG TABLET PO SCH ×2 (12:57→19:56)
[2020-10-22] MEDS: OXcarbazepine 150 MG TABLET PO SCH (19:53)
[2020-10-22] MEDS: Ipratropium/Albuterol Neb 3 ML IH SCH (22:56)
[2020-10-23] MEDS: Acetaminophen 325 MG TABLET PO PRN ×3 (01:41→16:20)
[2020-10-23] MEDS: Ipratropium/Albuterol Neb 3 ML IH SCH ×4 (03:49→22:16)
[2020-10-23] MEDS: Doxycycline 100 MG in 0.9 % Sodium Chloride Mini Bag 100 ML IVPB SCH ×2 (05:20→16:21)
[2020-10-23 06:40] LABS: Basophils # 0.1 K/mcL (0.0-0.2); Basophils % 1.3 %; Eosinophils # 0.2 K/mcL (0.0-0.6); Eosinophils % 4.7 %; Hematocrit 30.2 % (35.3-44.9); Immature Granulocytes % 0.6 % (0-4); Immature Platelets 9.5 % (1.1-6.1); Lymphocytes # 0.8 K/mcL (0.6-4.6); Lymphocytes % 17.9 %; Mean Corpuscular HGB Conc 33.1 g/dL (31.6-35.5); Mean Corpuscular Hemoglobin 32.9 pg (28.0-33.3); Mean Corpuscular Volume 99.3 fL (83.0-100.0); Mean Platelet Volume 12.6 fL (9.4-12.4); Monocytes # 0.6 K/mcL (0.0-1.3); Monocytes % 11.8 %; Red Blood Count 3.04 M/mcL (3.82-4.97); Segmented Neutrophils % 63.7 %; White Blood Count 4.7 K/mcL (4.3-11.1)
[2020-10-23 06:45] LABS: INR 1.6; Prothrombin Time 18.6 Seconds (9.4-12.1)
[2020-10-23 07:09] LABS: Platelet Count 86 K/mcL (140-400)
[2020-10-23 07:25] LABS: Albumin 3.2 g/dL (3.5-5.7); Albumin/Globulin Ratio 1.5 (1.1-2.2); Bilirubin,Total 1.3 mg/dL (0.3-1.0); Calcium 8.8 mg/dL (8.6-10.3); Globulin 2.2 g/dL (2.4-3.5); Magnesium 1.9 mg/dL (1.6-2.6); Phosphorous 3.9 mg/dL (2.7-4.5); Potassium 3.1 mEq/L (3.5-5.1); Total Protein 5.4 g/dL (6.4-8.9)
[2020-10-23 07:49] LABS: Anisocytosis 1+ (Not Present); Platelet Estimate Decreased (Normal); Poikilocytosis 2+ (Not Present)
[2020-10-23] MEDS: OXcarbazepine 150 MG TABLET PO SCH ×2 (08:17→20:32)
[2020-10-23] MEDS: rOPINIRole 1 MG TABLET PO SCH ×2 (08:17→20:31)
[2020-10-23] MEDS: Cyanocobalamin (B-12) 1,000 MCG TABLET PO SCH (08:17)
[2020-10-23] MEDS: Cholecalciferol (D-3) 1,000 UNIT (25MCG) TABLET PO SCH (08:18)
[2020-10-23] MEDS: Magnesium Oxide 400 MG TABLET PO SCH (08:18)
[2020-10-23] MEDS: Thiamine (B-1) 100 MG TABLET PO SCH (08:18)
[2020-10-23] MEDS: predniSONE 5 MG TABLET PO SCH (08:18)
[2020-10-23] MEDS: metOLazone 5 MG TABLET PO SCH (08:36)
[2020-10-23] MEDS: Multivit/Ca/Min/Fe/FA 1 TAB TABLET PO SCH (09:37)
[2020-10-23] MEDS ORDERED: Doxycycline 100 MG CAPSULE PO SCH (18:00)
[2020-10-23] MEDS ORDERED: Furosemide 20 MG TABLET PO SCH (18:00)
[2020-10-24] MEDS: Acetaminophen 325 MG TABLET PO PRN ×2 (00:07→07:46)
[2020-10-24 00:35] LABS: Bilirubin,Urine Negative (Negative); Blood,Urine Negative (Negative); Clarity,Urine Clear (Clear); Color,Urine Yellow (Yellow); Glucose,Urine (UA) Normal (Normal); Ketones,Urine Negative (Negative); Leukocyte Esterase,Urine Small (Negative); Nitrite,Urine Negative (Negative); Protein,Urine Trace mg/dL (Neg-Trace); Specific Gravity,Urine 1.018 (1.010-1.025); Squamous Epithelial Cell,Urine Few per hpf (None-Few); Urobilinogen,Urine Normal (Normal)
[2020-10-24] MEDS: Ipratropium/Albuterol Neb 3 ML IH SCH ×3 (04:06→15:49)
[2020-10-24 06:00] LABS: INR 1.3; Prothrombin Time 15.1 Seconds (9.4-12.1)
[2020-10-24] MEDS ORDERED: Doxycycline 100 MG CAPSULE PO SCH (06:00)
[2020-10-24 06:14] LABS: Albumin 3.4 g/dL (3.5-5.7); Albumin/Globulin Ratio 1.5 (1.1-2.2); Bilirubin,Total 1.2 mg/dL (0.3-1.0); Calcium 8.7 mg/dL (8.6-10.3); Globulin 2.3 g/dL (2.4-3.5); Magnesium 1.9 mg/dL (1.6-2.6); Phosphorous 3.7 mg/dL (2.7-4.5); Potassium 3.5 mEq/L (3.5-5.1); Total Protein 5.7 g/dL (6.4-8.9)
[2020-10-24] MEDS: Multivit/Ca/Min/Fe/FA 1 TAB TABLET PO SCH (07:46)
[2020-10-24] MEDS: Magnesium Oxide 400 MG TABLET PO SCH (07:46)
[2020-10-24] MEDS: predniSONE 5 MG TABLET PO SCH (07:46)
[2020-10-24] MEDS: Cholecalciferol (D-3) 1,000 UNIT (25MCG) TABLET PO SCH (07:47)
[2020-10-24] MEDS: rOPINIRole 1 MG TABLET PO SCH (07:47)
[2020-10-24] MEDS: OXcarbazepine 150 MG TABLET PO SCH (07:47)
[2020-10-24] MEDS: Thiamine (B-1) 100 MG TABLET PO SCH (07:47)
[2020-10-24] MEDS: Cyanocobalamin (B-12) 1,000 MCG TABLET PO SCH (07:47)
[2020-10-24] MEDS ORDERED: Furosemide 40 MG TABLET PO SCH ×2 (09:00)
[2020-10-24] MEDS ORDERED: Fluticasone Propionate Nasal 50 MCG/SPRAY BOTTLE NS SCH (09:00)
[2020-10-24 10:53] VITALS: BP 135/76
[2020-10-24 11:35] LABS: Hematocrit 30.8 % (35.3-44.9); Hemoglobin 10.2 g/dL (11.5-15.4); Mean Corpuscular HGB Conc 33.1 g/dL (31.6-35.5); Mean Corpuscular Hemoglobin 33.1 pg (28.0-33.3); Mean Platelet Volume 12.3 fL (9.4-12.4); Platelet Count 103 K/mcL (140-400); Red Blood Count 3.08 M/mcL (3.82-4.97); Red Cell Distribution Width 21.2 % (11.5-14.5); White Blood Count 5.9 K/mcL (4.3-11.1)
[2020-10-24] MEDS ORDERED: Spironolactone 25 MG TABLET PO SCH (12:00)
[2020-10-24] MEDS ORDERED: Albumin 25% 25gram/100mL 25 GM/100 ML IV.SOLN IVPB SCH (20:00)
== END 2020-10-24 14:30 | DRG 291 ==
LOC: EMEROOARM 15:52 → 2NENU 15:52 → SUATTDRO 10-21 15:30
PROVIDERS: ADMIT Student in an Organized Health Care Education/Training Program; ATTEND Internal Medicine